=== PATIENT | female | born 1955 ===

== ENCOUNTER 2020-10-25 12:34 | Outpatient (CLI) | payer OTHER ==
[~2020-10-25 12:34] MED LIST: HYOSCYAMINE0.125 M1 SL; INTESTINEX1 CA1 PO; OXYC1TAB9 PO
== END 2020-10-29 12:47 | disposition home or self-care (01) ==
LOC: RAD 12:34
PROVIDERS: ATTEND Surgery
DX: K59.09 Other constipation (principal); K58.1 Irritable bowel syndrome with constipation
CPT/HCPCS: 74018; 78266; A9541